=== PATIENT | male | born 1935 | race Caucasian/White ===

== ENCOUNTER 2017-12-31 05:26 | Outpatient (CLI) | payer MEDICARE, OTHER | END 2017-12-31 05:27 | disposition short-term general hospital (02) | LOC: EMS 05:26 | PROVIDERS: ATTEND Surgery | DX: R07.9 Chest pain, unspecified (principal) | CPT/HCPCS: A0425; A0427 ==

== ENCOUNTER 2022-02-02 13:10 | Outpatient (CLI) | payer MEDICARE, OTHER | END 2022-02-02 13:11 | disposition short-term general hospital (02) | LOC: EMS 13:10 | DX: R06.00 Dyspnea, unspecified (principal) | CPT/HCPCS: A0425; A0427; A0888 ==